=== PATIENT | female | born 1995 | race Caucasian/White ===

== ENCOUNTER 2018-04-27 11:39 | Emergency (ER) | payer BC ==
[~2018-04-27] VITALS: Ht 167.6 cm; Wt 68.0 kg
[2018-04-27 11:48] VITALS: Ht 167.6 cm; Wt 68.0 kg
[2018-04-27 14:02] VITALS: BP 116/63
== END 2018-04-27 14:02 | disposition home or self-care (01) ==
LOC: ED 11:39
DX: G43.909 Migraine, unspecified, not intractable, without status migrainosus (principal); H53.149 Visual discomfort, unspecified; Z88.8 Allergy status to other drugs, medicaments and biological substances; Z88.0 Allergy status to penicillin
CPT/HCPCS: J2765